=== PATIENT | female | born 1990 | race Two or more races ===

== ENCOUNTER → 2021-06-23 | Outpatient (CLI) | payer OTHER ==
[~2021-06-23] MED LIST: PEPCID AC20 MG PO; PRENATAL TABLE1 EAC1 PO; SURFAK240 M1 PO
== END | disposition home or self-care (01) ==
LOC: NST 14:16
PROVIDERS: ATTEND Obstetrics & Gynecology
DX: Z34.83 Encounter for supervision of other normal pregnancy, third trimester (principal)

== ENCOUNTER 2021-07-11 13:30 | Inpatient (IN) | payer OTHER ==
[~2021-07-11] VITALS: Ht 167.6 cm; Wt 2.7 kg
[2021-07-25] MEDS ORDERED: PEPCID AC20 MG PO (18:03)
[2021-07-25] MEDS ORDERED: PRENATAL TABLE1 EAC1 PO (18:03)
[2021-07-25] MEDS ORDERED: SURFAK240 M1 PO (18:04)
== END 2021-07-28 16:13 | disposition home or self-care (01) | DRG 788 ==
LOC: LDR 07-25 15:36 → OB/GYN 07-26 13:30 → O/R 07-26 17:28 → OB/GYN 07-26 18:49
PROVIDERS: ADMIT Obstetrics & Gynecology; ATTEND Obstetrics & Gynecology
PROC: 3E0P7VZ Introduction of Hormone into Female Reproductive, Via Natural or Artificial Opening (ICD-10-PCS; 2021-07-25)
PROC: 3E033VJ Introduction of Other Hormone into Peripheral Vein, Percutaneous Approach (ICD-10-PCS; 2021-07-25)
PROC: 4A1HXFZ Monitoring of Products of Conception, Cardiac Rhythm, External Approach (ICD-10-PCS; 2021-07-25)
PROC: 10D00Z1 Extraction of Products of Conception, Low, Open Approach (ICD-10-PCS; principal; 2021-07-26 15:00)
DX: O61.0 Failed medical induction of labor (principal); O62.0 Primary inadequate contractions; O13.4 Gestational [pregnancy-induced] hypertension without significant proteinuria, complicating childbirth; O32.4XX0 Maternal care for high head at term, not applicable or unspecified; Z3A.40 40 weeks gestation of pregnancy; Z37.0 Single live birth

== ENCOUNTER 2021-07-18 12:06 | Outpatient (CLI) | payer OTHER | END 2021-07-18 13:13 | disposition home or self-care (01) | LOC: NST 12:06 | PROVIDERS: ATTEND Obstetrics & Gynecology | DX: Z34.83 Encounter for supervision of other normal pregnancy, third trimester (principal) ==